=== PATIENT | male | born 1980 | race American Indian/Alaskan Native ===

== ENCOUNTER 2016-06-18 15:32 | Emergency (ER) | payer SELFPAY ==
[2016-06-18 16:20] VITALS: BP 123/75
--- NOTE | 2016-06-18 18:35 | Emergency Department Report ---
HPI - General Chief Complaint: Upper Respiratory Infection Time Seen by Provider: 06/18/16 18:30 - HPI HPI: Patient here reported that he has headache, cough and sneezing times one week. Denies taking any [id number] medication. He also reports that he is having nasal congestion and it hurts around his face. Denies any shortness of breath or chest pain. Denies any fever or chills. He is also reporting that he has bumps on his penis after having unprotected sex. Due to the bumps are painful. Pain is a burning sensation at 3 out of 10. Denies any hematuria or penile discharge. Denies any history of herpes. Denies any abdominal, back pain or testicular pain. Denies urinary burning, frequency or urgency. Has any nausea vomiting. ED Past Medical Hx - Past Medical History Previous Medical History?: No - Surgical History Past Surgical History?: No - Family History Family history: no significant - Social History Smoking Status: Current Every Day Smoker Substance Use Type: Alcohol - Medications Home Medications: Home Medications Medication Instructions Recorded Confirmed Last Taken Type Amoxicillin [Amoxicillin TAB] 875 mg PO BID #14 tablet 06/18/16 Unknown Rx Fluticasone [Flonase] 1 spray NS QDAY #1 bottle 06/18/16 Unknown Rx Loratadine [Claritin] 10 mg PO DAILY #14 tablet 06/18/16 Unknown Rx Valacyclovir HCl [Valtrex] 1,000 mg PO TID #21 tablet 06/18/16 Unknown Rx ED Review of Systems ROS: Stated complaint: FLU LIKE SYMPTOMS/ISSUES IN GENITAL AREA Other details as noted in HPI Comment: All other systems reviewed and negative Constitutional: denies: chills, fever Eyes: denies: vision change ENT: congestion. denies: ear pain, throat pain Respiratory: cough. denies: orthopnea, shortness of breath, SOB with exertion, SOB at rest, stridor, wheezing Cardiovascular: denies: chest pain, palpitations, edema, syncope Gastrointestinal: denies: abdominal pain, nausea, vomiting Genitourinary: other (reports painful bumps to penis). denies: urgency, dysuria , frequency, hematuria, discharge, testicular pain, testicular mass Musculoskeletal: denies: back pain, arthralgia Skin: denies: rash Neurological: denies: headache, weakness, numbness, paresthesias, abnormal gait , vertigo Physical Exam - Physical Exam Vital Signs: Vital Signs 06/18/16 16:17 Temperature 98.7 F Pulse Rate 82 Respiratory 18 Rate Blood Pressure 123/75 O2 Sat by Pulse 100 Oximetry General: This is a 35-year-old male well nourished well-developed in no acute distress Physical Exam: Head: Normocephalic atraumatic Mouth: Moist, no pharyngeal exudate or erythema. Uvula is midline and oral airway is patent. No gingival enlargement or dental tenderness. No facial swelling. No peritonsillar abscesses. Neck: Supple, no C-spine tenderness, no tracheal deviation. Nontender to palpate. no adenopathy Ears: Bilateral TMs congested without erythema .bilateral EAC without any redness swelling or drainage Eyes: Bilateral pupils equal and reactive to light, bilateral EOM intact. Bilateral sclera and conjunctiva without injection. Normal accommodation Nose: Mucosa moist, positive congestion and erythema. Positive clear drainage. frontal sinus tender to palpate. Lungs:Clear to auscultate bilaterally no rhonchi wheezes or rales. Normal work of breathing Male : Patient with painful herpatic lesions to glans penis and anterior- posterior penile shaft. No penile discharge noted. No adenopathy. extremity; No CCE. +2 pulses. No neurovascular compromise Cardiovascular: S1-S2, regular rate rhythm. No murmurs. Skin: clean Dry and intact no rash no lesions Psych: Normal mood and behavior ED Course Vital Signs 06/18/16 16:17 Temperature 98.7 F Pulse Rate 82 Respiratory 18 Rate Blood Pressure 123/75 O2 Sat by Pulse 100 Oximetry ED Medical Decision Making - Medical Decision Making ED course: I discussed the patient that he has genital herpes which he denies having in the past. He has painful lesions to his penis. Patient also with sinusitis. I discussed diagnosis and treatment plan with patient. I discussed with him that he needs to tell his partner that he has herpes and he needs to go to the health department in [facility] for further STD checks. Patient voiced understanding of diagnosis and treatment plan. Patient discharged home with prescription for valacyclovir, amoxicillin, Flonase and Claritin. Critical care attestation.: If time is entered above; I have spent that time in minutes in the direct care of this critically ill patient, excluding procedure time. ED Disposition Clinical Impression: Genital herpes in men Sinusitis, acute Qualifiers: Sinusitis location: unspecified location Recurrence: not specified as recurrent Qualified Code(s): J01.90 - Acute sinusitis, unspecified Disposition: DISCHARGED TO HOME OR SELFCARE Is pt being admited?: No Does the pt Need Aspirin: No Condition: Stable Instructions: Genital Herpes Simplex (ED), Sinusitis (ED), Safe Sex (ED) Additional Instructions: Please inform Your partner that you were treated for STD specifically herpes in emergency room today. He or she will need to be checked. Please [facility] for STD check Please practice safe sex Please do not have sexual activity until all lesions are cleared on penis Practice good hand hygiene Prescriptions: Amoxicillin [Amoxicillin TAB] 875 mg PO BID #14 tablet Fluticasone [Flonase] 1 spray NS QDAY #1 bottle Loratadine [Claritin] 10 mg PO DAILY #14 tablet Valacyclovir HCl [Valtrex] 1,000 mg PO TID #21 tablet Referrals: PRIMARY CARE, [Primary Care Provider] - 3-5 Days Forms: Work/School Release Form(ED)
== END 2016-06-18 18:50 | disposition home or self-care (01) ==
LOC: ED 15:32
DX: J01.90 Acute sinusitis, unspecified (principal); A60.00 Herpesviral infection of urogenital system, unspecified; F17.200 Nicotine dependence, unspecified, uncomplicated
CPT/HCPCS: 99282